=== PATIENT | male | born 1940 | race American Indian/Alaskan Native ===

== ENCOUNTER → 2017-04-23 | Day surgery (SDC) | payer BC ==
[2017-04-23 11:23] VITALS: BMI 26.4
[2017-04-23 12:57] LABS: BASO % 0.6 % (0.0-2.0); EOS # 0.1 K/uL (0.0-0.7); EOS % 0.7 % (0.0-4.0); HEMATOCRIT 48.2 % (35.0-51.0); LYMPH # 2.1 K/uL (1.0-4.3); LYMPH % 27.2 % (20.0-40.0); MEAN CELL VOLUME 91.8 fL (80.0-94.0); MEAN CORPUSCULAR HEMOGLOBIN 30.3 pg (27.0-31.0); MEAN PLATELET VOLUME 9.3 fL (7.2-11.7); MONO # 0.6 K/uL (0.0-0.8); MONO % 8.1 % (0.0-10.0); NRBC % 0.2 % (0.0-2.0); RED CELL DISTRIBUTION WIDTH 13.8 % (11.5-14.5); WHITE BLOOD COUNT 7.8 K/uL (4.8-10.8)
--- NOTE | 2017-04-23 13:09 | RAD ---
HISTORY: PREOP O.R. 05/07 COMPARISON: No prior. TECHNIQUE: Chest PA and lateral FINDINGS: LUNGS: No active pulmonary disease. PLEURA: No significant pleural effusion identified. No pneumothorax apparent. CARDIOVASCULAR: Normal. OSSEOUS STRUCTURES: No significant abnormalities. VISUALIZED UPPER ABDOMEN: Normal. OTHER FINDINGS: Single lead pacemaker IMPRESSION: No active disease.
[2017-04-23 13:44] LABS: CALCIUM 8.8 mg/dl (8.6-10.4); POTASSIUM 4.2 mmol/L (3.6-5.2)
--- NOTE | 2017-04-23 17:41 | CARD ---
APPROVED REPORT EKG Measurement Heart [id number] [id number] <Conclusion> Sinus rhythm with 1st degree AV block. Nonspecific Intra-ventricular conduction block Left atrial abnormality. 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
== END | disposition home or self-care (01) ==
LOC: C.PAT 11:05
PROVIDERS: ATTEND Surgery Vascular Surgery
DX: Z01.818 Encounter for other preprocedural examination (principal); K40.90 Unilateral inguinal hernia, without obstruction or gangrene, not specified as recurrent; I44.0 Atrioventricular block, first degree

== ENCOUNTER 2017-05-07 06:00 | Day surgery (SDC) | payer BC, MEDICARE ==
[2017-04-23 11:24] VITALS: BMI 26.4
[2017-05-07] MEDS ORDERED: ceFAZolin IV 2 gm in Dextrose 2 GM/50 ML BAG IVPB ONE (07:41)
[2017-05-07] MEDS ORDERED: Bupivacaine 0.5%/Epi 1:200,000 (10 ML SOL) ONE (07:41)
[2017-05-07] MEDS ORDERED: Lidocaine 1% Inj (20ml) ONE (07:41)
[2017-05-07] MEDS ORDERED: Etomidate 20 mg/10ml Inj IV ONE (07:49)
[2017-05-07] MEDS ORDERED: Propofol 10 mg/ml Inj (20 ML) ONE (07:49)
[2017-05-07] MEDS ORDERED: Lactated Ringer's 1,000 ML IV ONE (07:50)
[2017-05-07] MEDS ORDERED: ePHEDrine 50 mg/ml Inj ONE (08:32)
[2017-05-07] MEDS ORDERED: Atropine 0.4 mg/ml Inj (1 mL) ONE (08:32)
[2017-05-07] MEDS ORDERED: Phenylephrine 10 mg/ml Inj ONE (08:32)
--- NOTE | 2017-05-07 09:19 | PCM.SURG1 ---
Surgeon's Initial Post Op Note - Surgeon's Notes Surgeon: Dr. Dixon Stick Puller: Dr. Skinner PGY2, Dr. Wilkerson PGY3 Type of Anesthesia: General LMA Pre-Operative Diagnosis: left inguinal hernia Operative Findings: see dictation Post-Operative Diagnosis: same Operation Performed: open left inguinal hernia repair with mesh Specimen/Specimens Removed: none Estimated Blood Loss: EBL {In ML}: 20 Blood Products Given: N/A Drains Used: No Drains Post-Op Condition: Good Date of Surgery/Procedure: 05/07/17 Time of Surgery/Procedure: 07:50
[2017-05-07 13:39] VITALS: BP 143/79; PULSE 76; RESP 15; TEMP 97.9; O2SAT 100
--- NOTE | 2017-05-07 19:48 | OP ---
PROCEDURE DATE: 05/07/2017 PREOPERATIVE DIAGNOSIS: Left inguinal hernia. POSTOPERATIVE DIAGNOSIS: Left inguinal hernia. PROCEDURE CARRIED OUT: Repair of left inguinal hernia with PHS Prolene Hernia System. SURGEON: Capo Dixon Jr., MD SENIOR UI SOFTWARE ENGINEER: Dr. Ren ANESTHESIOLOGIST: INDICATION: A 76-year-old man with abdominal pain, found to have a left inguinal hernia. OPERATIVE FINDINGS: 1. This was a direct inguinal hernia. There was no indirect component. 2. A PHS Prolene Hernia System is used. DESCRIPTION OF PROCEDURE: Patient was given general anesthesia, intravenous antibiotics, Venodyne boots were applied. An incision was made in the groin exposing the external oblique, which was divided. The cord and its contents were identified, elevated out of the wound, a large direct hernia sac was identified and inverted back into the peritoneal cavity. PHS Prolene Hernia System was then pushed into the peritoneal cavity in the preperitoneal space and secured with prasad and sutures. The external oblique was closed, the skin was closed with nylon sutures and subcuticular closure. Blood loss of the procedure was less than 10 mL. Operation carried out, repair of left inguinal hernia with PHS Prolene Hernia System. Capo Dixon Jr., MD cc: Simon Blackburn MD
== END 2017-05-07 13:56 | disposition home or self-care (01) ==
LOC: C.SDS 06:00
PROVIDERS: ATTEND Surgery Vascular Surgery
DX: K40.90 Unilateral inguinal hernia, without obstruction or gangrene, not specified as recurrent (principal)
CPT/HCPCS: 49505; J0461; J0690; J2001; J2270; J2370; J2405; J2704; J3010; J7120

== ENCOUNTER 2018-10-03 11:53 | Outpatient (CLI) | payer MEDICARE | END 2018-10-03 11:54 | disposition home or self-care (01) | LOC: C.RADIC 11:53 | DX: M79.671 Pain in right foot (principal) ==